=== PATIENT | male | born 1965 | race Two or more races ===

== ENCOUNTER 2019-12-13 07:45 | Outpatient (CLI) | payer OTHER | END 2019-12-13 10:10 | disposition home or self-care (01) | LOC: NUCLEAR 07:45 | DX: I11.9 Hypertensive heart disease without heart failure (principal); I25.10 Atherosclerotic heart disease of native coronary artery without angina pectoris; Z95.1 Presence of aortocoronary bypass graft; E78.2 Mixed hyperlipidemia; E66.8 Other obesity | CPT/HCPCS: 78452; 93017; J0153; A9500 ==